=== PATIENT | female | born 1995 | race Caucasian/White ===

== ENCOUNTER 2018-12-28 16:23 | Inpatient (IN) | payer OTHER ==
[2018-12-28] MEDS: LACTATED RINGER'S 1,000 ML IV ×2 (20:23→21:03)
[2018-12-28] MEDS ORDERED: AL HYDROX/MG HYDROX/SIMETH 30 ML CUP PO (21:00)
[2018-12-28] MEDS ORDERED: ACETAMINOPHEN 325 MG TAB PO (21:00)
[2018-12-29] MEDS: LACTATED RINGER'S 1,000 ML IV ×4 (02:01→20:47)
[2018-12-29] MEDS: PRENATAL VITAMIN PO (08:38)
[2018-12-30] MEDS: LACTATED RINGER'S 1,000 ML IV ×3 (04:06→18:57)
[2018-12-30] MEDS: PRENATAL VITAMIN PO (09:09)
[2018-12-30] MEDS ORDERED: OXYTOCIN 30 UNITS/LR 500 ML IV ×2 (10:30)
[2018-12-30] MEDS ORDERED: METHYLERGONOVINE 0.2 MG INJ IM (10:30)
[2018-12-30] MEDS ORDERED: CARBOPROST 250 MCG INJ IM (10:30)
[2018-12-30] MEDS ORDERED: LIDOCAINE 1% (MPF) 30 ML INJ INJ (10:30)
[2018-12-30] MEDS ORDERED: OXYCODONE/ACETAMINOPHEN (5/325) TAB PO (10:30)
[2018-12-30] MEDS ORDERED: MISOPROSTOL 200 MCG TAB PR (10:30)
[2018-12-30] MEDS ORDERED: IBUPROFEN 600 MG TAB PO (10:30)
[2018-12-30] MEDS: MISOPROSTOL 50 MCG CAPSULE PO ×3 (11:23→21:32)
[2018-12-30 12:09] LABS: ADD MAN DIFF? NO
[2018-12-30 12:23] LABS: WHITE BLOOD COUNT 8.1 10^3/ul (4.8-10.8)
[2018-12-30 12:23] LABS: BASOPHILS % 0.2 % (0.0-2.0); EOSINOPHILS % 0.1 % (0.0-7.0); HEMATOCRIT 35.5 % (37.0-47.0); HEMOGLOBIN 11.8 g/dl (12.0-16.0); LYMPHOCYTES % 12.8 % (15.0-51.0); MEAN CORPUSCULAR HEMOGLOBIN 30.9 pg (29.0-33.0); MEAN CORPUSCULAR HGB CONC 33.2 g/dl (32.0-37.0); MEAN CORPUSCULAR VOLUME 92.9 fl (82.0-101.0); MEAN PLATELET VOLUME 11.2 fl (7.4-10.4); MONOCYTE # 0.4 10^3/ul (0.3-0.9); NEUTROPHIL # 6.5 10^3/ul (1.6-7.5); PLATELET COUNT 174 10^3/UL (140-415); RED BLOOD COUNT 3.82 10^6/ul (4.20-5.40); RED CELL DISTRIBUTION WIDTH 12.3 % (11.5-14.5)
[2018-12-30 12:43] LABS: INR 0.89; PARTIAL THROMBOPLASTIN TIME 27.3 Sec (23.0-35.0); PROTIME 12.2 Sec (11.9-14.9)
[2018-12-30 14:48] LABS: HEPATITIS B SURFACE ANTIGEN NEGATIVE (NEGATIVE)
[2018-12-30 16:53] LABS: RAPID PLASMA REAGIN NONREACTIVE (NR)
[2018-12-31] MEDS: LACTATED RINGER'S 1,000 ML IV ×4 (01:54→17:35)
[2018-12-31] MEDS: BUTORPHANOL 2 MG INJ IV (02:02)
[2018-12-31] MEDS: MISOPROSTOL 50 MCG CAPSULE PO (06:43)
[2018-12-31] MEDS: OXYTOCIN 30 UNITS/LR 500 ML IV ×3 (10:55→23:28)
[2018-12-31] MEDS ORDERED: FENTAnyl 2MCG/ML-ROPIV 0.2% 100 ML (13:39)
[2018-12-31] MEDS ORDERED: NALOXONE (0.4 MG/ML) INJ IV (14:00)
[2018-12-31] MEDS ORDERED: OXYTOCIN 30 UNITS/LR 500 ML IV (21:30)
[2018-12-31] MEDS ORDERED: METHYLERGONOVINE 0.2 MG INJ IM (21:30)
[2018-12-31] MEDS ORDERED: MISOPROSTOL 200 MCG TAB PR (21:30)
[2018-12-31] MEDS ORDERED: HYDROCODONE/APAP (5/325) TAB PO (21:30)
[2018-12-31] MEDS ORDERED: DIBUCAINE 1% 30 GM OINT TOP (21:30)
[2018-12-31] MEDS ORDERED: CARBOPROST 250 MCG INJ IM (21:30)
[2018-12-31] MEDS ORDERED: LANOLIN HPA 1 PKT TOP (21:30)
[2018-12-31] MEDS: BENZOCAINE 20% 56 ML SPRAY TOP (23:26)
[2018-12-31] MEDS: WITCH HAZEL/GLYCERIN PAD PR (23:26)
[2019-01-01] MEDS: LACTATED RINGER'S 1,000 ML IV* ×4 (00:47→21:46)
[2019-01-01] MEDS: HYDROCODONE/APAP (5/325) TAB PO (02:25)
[2019-01-01] MEDS: IBUPROFEN 600 MG TAB PO ×5 (05:53→23:34)
[2019-01-01 06:49] LABS: ADD MAN DIFF? NO
[2019-01-01 06:53] LABS: BASOPHILS % 0.2 % (0.0-2.0); EOSINOPHILS % 0.2 % (0.0-7.0); HEMATOCRIT 30.6 % (37.0-47.0); HEMOGLOBIN 10.3 g/dl (12.0-16.0); LYMPHOCYTES # 1.6 10^3/ul (0.8-2.9); LYMPHOCYTES % 13.3 % (15.0-51.0); MEAN CORPUSCULAR HEMOGLOBIN 30.7 pg (29.0-33.0); MEAN CORPUSCULAR HGB CONC 33.7 g/dl (32.0-37.0); MEAN CORPUSCULAR VOLUME 91.3 fl (82.0-101.0); MEAN PLATELET VOLUME 11.2 fl (7.4-10.4); MONOCYTE # 0.9 10^3/ul (0.3-0.9); NEUTROPHIL # 9.6 10^3/ul (1.6-7.5); NEUTROPHILS % 78.8 % (39.0-77.0); PLATELET COUNT 144 10^3/UL (140-415); RED BLOOD COUNT 3.35 10^6/ul (4.20-5.40); RED CELL DISTRIBUTION WIDTH 12.1 % (11.5-14.5)
[2019-01-01 06:53] LABS: WHITE BLOOD COUNT 12.2 10^3/ul (4.8-10.8)
[2019-01-01] MEDS: LACTATED RINGER'S 1,000 ML IV ×2 (10:07→21:47)
[2019-01-02] MEDS: LACTATED RINGER'S 1,000 ML IV ×2 (02:07→07:27)
[2019-01-02] MEDS: LACTATED RINGER'S 1,000 ML IV* ×2 (05:23→07:27)
[2019-01-02] MEDS: IBUPROFEN 600 MG TAB PO ×2 (06:00→12:00)
[2019-01-02] MEDS: DIPHTH/TET/ACEL PERTUSS (ADULT) 0.5 ML VIAL IM* (07:26)
[2019-01-02] MEDS: MEASLES,MUMPS,RUBELLA VACCINE INJ SC* (07:26)
[2019-01-02] MEDS: VARICELLA VACCINE LIVE/PF 1,350 UNIT/0.5 ML ML SC* (07:27)
[2019-01-02] MEDS: FENTAnyl 2MCG/ML-ROPIV 0.2% 100 ML BAG EPI ×2 (07:27→07:28)
== END 2019-01-02 15:21 | disposition home or self-care (01) | DRG 807 ==
LOC: L-D 12-29 03:02 → PP1 01-01 00:24 → OBT 16:23 → L-D 16:24 → OBT 20:15 → L-D 12-30 16:26
PROVIDERS: Obstetrics & Gynecology
PROC: 10E0XZZ Delivery of Products of Conception, External Approach (ICD-10-PCS; principal; 2018-12-31)
PROC: 0KQM0ZZ Repair Perineum Muscle, Open Approach (ICD-10-PCS; 2018-12-31)
PROC: 3E033VJ Introduction of Other Hormone into Peripheral Vein, Percutaneous Approach (ICD-10-PCS; 2018-12-31)
DX: O70.1 Second degree perineal laceration during delivery (principal); Z37.0 Single live birth; Z3A.38 38 weeks gestation of pregnancy
CPT/HCPCS: 36415; 76815; 76816; 76818; 85025; 85610; 85730; 86592; 86850; 86900; 86901; 87340; 90716; 96360; 96361